=== PATIENT | male | born 1995 | race Two or more races ===

== ENCOUNTER 2019-01-25 19:16 | Emergency (ER) | payer OTHER, SELFPAY ==
[2019-01-25 19:17] VITALS: BP 104/75; PULSE 74; RESP 16; TEMP 36.6; O2SAT 98; BMI 22.6
--- NOTE | 2019-01-25 20:03 | ED.VIS.GEN ---
History of Present Illness Chief Complaint: Head Injury Informant: Patient, Friend Onset: Today Narrative: Patient was playing soccer when he was hit in the face by another player's head. He has a small laceration just above the left eye. He denies loss of consciousness. No vision change. Past Medical History - Allergies and Home Meds Allergies/Adverse Reactions: Allergies No Known Allergies Allergy (Verified 01/25/19 19:19) Primary Care Physician: Yon RossOut of [Primary Care Provider] - Prior records reviewed: Yes Past Medical History: - - Reviewed Lives: Roommate Review of Systems General: Denies: Chills, Fever Eyes: Denies: Visual changes - bilaterally ENT: Denies: Bilateral ear pain Cardiovascular: Denies: Chest pain Respiratory: Denies: Dyspnea Gastrointestinal: Denies: Abdominal pain, Nausea, Vomiting Skin: Reports: Wounds Neurological: Denies: Headache Physical Exam Vital Signs/Narrative: Vital Signs Temp Pulse Resp BP Pulse Ox 01/25/19 19:17 98 F 74 16 104/75 98 Inital Vital Signs reviewed: Yes General: Well nourished, Well developed Head: Normocephalic, - - 1.5 cm superficial laceration just inferior to the lateral left eyebrow. No bony tenderness around the orbit. No tenderness over the zygoma. Eyes: Perrl, EOMI ENT: Moist mucous membranes Neck: Supple, - - No C-spine tenderness. Cardiovascular: Regular rate, Regular rhythm Respiratory: No distress, CTA bilaterally Abdomen: Soft, Nontender Extremities: Nontender Skin: Normal color, No rash Neurological: Alert, Oriented x3 Psychological: Normal affect Diagnostic/Tx/Re-eval - Medical Decision Making Angella-Strips removed. Wound was cleansed. Dermabond is placed to close the wound. ED Disposition - Plan for ED Patient: Disposition: Home or Assisted Living Diagnosis: Eyebrow laceration Instructions: HEAD INJURY, No Wake-Up (Adult), LACERATION, Face (Skin Glue) Referrals: Yon RossOut of [Primary Care Provider] -
[2019-01-25 20:28] VITALS: BP 110/78; PULSE 72; RESP 16; O2SAT 100
== END 2019-01-25 20:29 | disposition home or self-care (01) ==
LOC: ED 20:18
PROVIDERS: Emergency Provider Emergency Medicine; Family Provider Pediatrics; PCP Pediatrics
DX: S01.112A Laceration without foreign body of left eyelid and periocular area, initial encounter (principal); W50.0XXA Accidental hit or strike by another person, initial encounter; Y93.66 Activity, soccer; Y92.9 Unspecified place or not applicable
CPT/HCPCS: 12011; 99282